=== PATIENT | male | born 1970 | race Two or more races ===

== ENCOUNTER 2019-04-25 14:37 | Inpatient (IN) | payer OTHER ==
[~2019-04-25] VITALS: Ht 175.3 cm; Wt 75.0 kg
[2019-04-25] MEDS ORDERED: traZODone 25MG PER 1/2 TABLET PO PRN (15:30)
[2019-04-25] MEDS ORDERED: DEXTROSE 50% 50 ML SYRINGE IV PRN (15:30)
[2019-04-25] MEDS ORDERED: GLUCAGON FOR INJ 1 MG VIAL (J1610) SC PRN (15:30)
[2019-04-25] MEDS ORDERED: GLUCOSE 4 GM CHEW TABLET PO PRN (15:30)
[2019-04-25 15:48] VITALS: BP 129/86
[2019-04-25] MEDS ORDERED: LANTINJ4 SC (16:21)
[2019-04-25] MEDS ORDERED: PANT40TA3 PO (16:21)
[2019-04-25] MEDS ORDERED: ASPI325T57 PO (16:31)
[2019-04-25] MEDS ORDERED: INSUHUMDS SC (16:31)
[2019-04-25] MEDS ORDERED: ATOR80TA59 PO (16:31)
[2019-04-25] MEDS ORDERED: METO1TAB87 PO (16:31)
[2019-04-25] MEDS ORDERED: QUET1TAB7 PO (16:32)
[2019-04-25] MEDS ORDERED: COMMENTS (18:02)
[2019-04-25] MEDS: HumaLOG INSULIN (NovoLOG) PER UNIT SC SCH ×2 (18:03→21:00)
[2019-04-25] MEDS ORDERED: LEVEMIR (INSULIN DETEMIR) 1 UNITS/0.01ML SC SCH (21:00)
[2019-04-25] MEDS: SENNA 8.6 MG TAB (SENOKOT) PO SCH (21:00)
[2019-04-25] MEDS: HEPARIN SOD (PORCINE) 5000 UNITS/ML VIAL SC SCH (21:38)
[2019-04-25] MEDS: traZODone 25MG PER 1/2 TABLET PO SCH (21:38)
[2019-04-25] MEDS: METOPROLOL TART 12.5 MG PER 1/2 TAB PO SCH (21:39)
[2019-04-25] MEDS: DOCUSATE SODIUM 100 MG CAP PO SCH (21:39)
[2019-04-25] MEDS: ATORVASTATIN 20 MG TAB PO SCH (21:39)
[2019-04-25 22:00] VITALS: BP 114/72
[2019-04-26 06:00] VITALS: BP 154/81
[2019-04-26] MEDS: ASPIRIN 325 MG TAB PO SCH (08:09)
[2019-04-26] MEDS: HumaLOG INSULIN (NovoLOG) PER UNIT SC SCH ×4 (08:09→21:00)
[2019-04-26] MEDS: METOPROLOL TART 12.5 MG PER 1/2 TAB PO SCH ×2 (08:10→21:05)
[2019-04-26] MEDS: DOCUSATE SODIUM 100 MG CAP PO SCH ×2 (08:10→21:04)
[2019-04-26] MEDS: HEPARIN SOD (PORCINE) 5000 UNITS/ML VIAL SC SCH ×2 (08:10→21:06)
[2019-04-26] MEDS: PANTOPRAZOLE 40MG TAB (PROTONIX) PO SCH (08:10)
[2019-04-26 08:11] LABS: BASO # 0.1 10^3/uL (0.0-0.2); BASO % 0.7 % (0.0-1.0); EOS # 0.2 10^3/uL (0.0-0.5); LYMPH # 2.2 10^3/uL (1.5-5.0); LYMPH % 21.4 % (24.0-44.0); MEAN CORPUSCULAR HEMOGLOBIN 29.2 pg (27.0-33.0); MEAN CORPUSCULAR HGB CONC 32.6 g/dl (32.0-36.5); MEAN CORPUSCULAR VOLUME 89.8 fl (80.0-96.0); MONO # 0.7 10^3/uL (0.0-0.8); MONO % 6.8 % (0.0-5.0); NEUTROPHILS % 68.5 % (36.0-66.0); PLATELET COUNT, AUTOMATED 486 10^3/uL (150-450); RED BLOOD COUNT 4.79 10^6/uL (4.30-6.10); WHITE BLOOD COUNT 10.2 10^3/uL (4.0-10.0)
[2019-04-26 08:41] LABS: ALBUMIN 3.1 GM/DL (3.2-5.2); ALT/SGPT 40 U/L (12-78); BILIRUBIN,TOTAL 0.3 MG/DL (0.2-1.0); BLOOD UREA NITROGEN 11 MG/DL (7-18); CALCIUM LEVEL 9.4 MG/DL (8.5-10.1); CARBON DIOXIDE LEVEL 29 MEQ/L (21-32); CHLORIDE LEVEL 102 MEQ/L (98-107); CREATININE FOR GFR 0.88 MG/DL (0.70-1.30); GLOMERULAR FILTRATION RATE > 60.0 (>56); GLUCOSE, FASTING 294 MG/DL (70-100); SODIUM LEVEL 138 MEQ/L (136-145); TOTAL PROTEIN 7.6 GM/DL (6.4-8.2)
[2019-04-26 14:00] VITALS: BP 98/59
--- NOTE | 2019-04-26 15:06 | HPEPDOC ---
Manager Landscape Note DATE OF ADMISSION: 04-25-19 SOURCE OF ADMISSION INFORMATION: [facility] records and patient CHIEF COMPLAINT: stroke with TBI HISTORY OF PRESENT ILLNESS: 48M pmh DM2, HLD, HTN, smoking, CAD who presented to [facility] on 04-11-19 with chest pain, found to have STEMI and post-cardiac catheterization developed lethargy and altered mental status. CT showed a right cerebellar infarct with concern for LVO and patient was transported to [facility] where CTA showed, right cerebellar infarctno occlusion or significant stenosis in the arteries of the neck. He was not given TPA nor was a mechanical thrombectomy performed. He was evaluated by speech and found not to have swallowing impairments. He developed worsening neurological decline with CTH showing, stable right PICA distribution infarct. Over time the associated mass effect has progressed increase in the size of the ventricular system. He had a EVD placed on 04-14-19 and underwent a right suboccipital craniectomy on 04-15-[address] Roman with resection of the necrotic cerebellum. He developed a post-op fever and was started on IV Zosyn and Vancomycin empirically, extubated and had EVD removed on 04-17-19. ECHO showed calculated left ventricular ejection fraction 31.8%...grade 1 diastolic dysfunction He was evaluated by therapy and noted to have deficits in mobility and impairment and deemed medically appropriate for discharge to ARU on 04-25-19. REVIEW OF SYSTEMS: The following is a completed review of systems and has been reviewed. Review of systems otherwise unremarkable. PAIN: Patient self reports no pain EYES: No recent vision changes EARS, NOSE, & THROAT: No throat pain, or dysphagia, or rhinorrhea CARDIOVASCULAR: Denies chest pain or palpitations PULMONARY: Denies shortness of breath GASTROINTESTINAL: Denies constipation/diarrhea GENITOURINARY: denies dysuria MUSCULOSKELETAL: no joint restrictions or localized weakness NEUROLOGICAL:s/p craniotomy and CVA HEMATOLOGICAL: denies easy bruising SKIN: cranial sutures PSYCHIATRIC: Unremarkable All other review of systems found to be negative. PAST MEDICAL HISTORY: as per HPI PAST SURGICAL HISTORY: as per HPI ALLERGIES: Please see below. MEDICATIONS: Please see below. SOCIAL HISTORY: +smoker, no etoh or illicit drugs DIET: mechanical soft, thins PHYSICAL EXAMINATION: VITAL SIGNS: Please see below. GENERAL: Pleasant and cooperative. No acute distress. HEENT: PERRL. Extraocular movements intact. Clear conjunctiva CARDIOVASCULAR: Regular rate and rhythm. No murmurs, rubs, or gallops LUNGS: Clear to auscultation bilaterally. No wheezes. No rhonchi ABDOMEN: Soft, nontender, nondistended. Positive bowel sounds. Normal active bowel sounds NEUROLOGICAL: Alert and oriented times three. Cranial nerves II through XII grossly intact. Sensation grossly intact in all 4 limbs EXTREMITIES: 5\5 strength bilateral upper extremities. 5\5 strength right lower extremity. 5/5 strength in left lower extremity. SKIN: right frontal and suboccipital mayur LABORATORY DATA: Please see below. IMAGING:Imaging documentation personally reviewed by record FUNCTIONAL STATUS: Premorbid: Independent with all activities of daily life as well as mobility On Admission: Minimum assistance for bathing, upper body dressing, bed chair and wheelchair transfers, toilet transfers, ambulation. GOALS: Independent with all activities of daily life as well as mobility, fall recovery, high level balance training without AD ASSESSMENT:48-year-old M with past medical history of CAD, HTN, DM who presents status post STEMI, stroke with hydrocephalus s/p craniectomy PLAN: 1. 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 Neuro: s/p right cerebellar infarct complicated by hydrocephalus with mass effect requiring craniectomy decompression on 04-15-19 -f/u with neurosurgeon upon discharge -mayur/sutures to be removed 05-05-19 -secondary stroke prevention- statin, ASa, BP and diabetic control 3. Cardiac: systolic CHF EF 30% s/p catheterization 04-11-19, and grade 1 diastolic CHF- c/u statin, metoprolol, and ASA 325mg- medicine consulted to assist in management -f/u with cardiology outpatient 4. resp: encourage incentive spirometry 5. : monitor PVRs 6. DVT ppx: heparin and TEDs 7. GI ppx: protonix 8. Endo: DM poorly controlled, s/u Insulin coverage and adjust prn 8. Dispo: TBD POST ADMISSION PHYSICIAN EVALUATION: Medical and functional status: Description of medical status, medical assessment: As above. Rehabilitation diagnosis and current and prior cold morbid medical conditions as above. Risk of complications and plans to mitigate them as above. Description of functional status current status is as above. Prior status as above. Status compared to preadmission: There are no clinically significant differences between the patient's current status and the information described on the preadmission screening document. Treatment plan anticipated: Treatment plan is as described above. Required disciplines including physical therapy, occupational therapy, others as noted above. Intensity of services: 3 hours a day, 6 days a week. Special considerations: There are no specific special or safety considerations that would likely preclude immediate implementation of an intensive rehabilitation program or subsequently influence the plan of care. ATTESTATION: Considering all the information above, it is my best judgment that this patient requires intensive rehabilitation therapy as described above and an inpatient hospital environment due to the complexity of nursing, medical, and rehabilitation needs required by the patient. Furthermore, this patient can reasonably be expected to participate in an benefit from an inpatient rehabilitation stay with an interdisciplinary team approach to the delivery of rehabilitation care under the direction and supervision of rehabilitation physician. PROGNOSIS: Excellent. ESTIMATED LENGTH OF STAY:8-10 days. PROJECTED DISCHARGE DESTINATION: Home with family support and any durable medical equipment required to increase functional safety and mobility. TIME SPENT COUNSELING AND COORDINATING INITIAL CARE: Greater than 70 minutes. Vital Signs Vital Sign - Last 24 Hours 04/25/19 04/25/19 04/25/19 04/26/19 15:48 21:39 22:00 06:00 Temp 96.3 97.3 96.8 Pulse 76 84 73 86 Resp 17 18 18 B/P (MAP) 129/86 (100) 114/72 114/72 (86) 154/81 (105) Pulse Ox 100 100 O2 Delivery Room Air Room Air Room Air 04/26/19 04/26/19 08:10 14:00 Temp 98.2 Pulse 86 67 Resp 18 B/P (MAP) 154/81 98/59 (72) Pulse Ox 99 O2 Delivery Room Air Laboratory Data CBC/BMP Laboratory Tests 04/26/19 07:54 Labs 24H Laboratory Tests 2 04/25/19 16:05: Bedside Glucose (Misc Panel) 147H 04/25/19 20:53: Bedside Glucose (Misc Panel) 218H 04/26/19 06:49: Bedside Glucose (Misc Panel) 296H 04/26/19 07:54: Immature Granulocyte % (Auto) 0.6, Neutrophils (%) (Auto) 68.5H, Lymphocytes (%) (Auto) 21.4L, Monocytes (%) (Auto) 6.8H, Eosinophils (%) (Auto) 2.0, Basophils (%) (Auto) 0.7, Neutrophils # (Auto) 7.0, Lymphocytes # (Auto) 2.2, Monocytes # (Auto) 0.7, Eosinophils # (Auto) 0.2, Basophils # (Auto) 0.1, Nucleated Red Blood Cells % (auto) 0.0, Anion Gap 7L, Glomerular Filtration Rate > 60.0, Calcium Level 9.4, Total Bilirubin 0.3, Aspartate Amino Transf (AST/SGOT) 21, Alanine Aminotransferase (ALT/SGPT) 40, Alkaline Phosphatase 116, Total Protein 7.6, Albumin 3.1L, Albumin/Globulin Ratio 0.69L 04/26/19 12:06: Bedside Glucose (Misc Panel) 360H FSBS Laboratory Tests Test 04/25/19 16:05 04/25/19 20:53 04/26/19 06:49 04/26/19 12:06 Range/Units Bedside Glucose (Misc Panel) 147 218 296 360 70-105 MG/DL Home Medications Scheduled Aspirin (Aspirin) 325 Mg Tablet, 325 MG PO DAILY, (Reported) Atorvastatin Calcium (Atorvastatin Calcium) 80 Mg Tablet, 80 MG PO QPM, (Reported) Insulin Glargine,Hum.rec.anlog (Lantus Solostar) 100 Unit/1 Ml Insuln.pen, 30 UNITS SC QHS, (Reported) Insulin Human Lispro (Humalog) 100 Unit/1 Ml Vial, 1 DOSE SC WM, (Reported) SLIDING SCALE Metoprolol Tartrate (Metoprolol Tartrate) 25 Mg Tablet, 12.5 MG PO BID, (Reported) Pantoprazole Sodium (Pantoprazole Sodium) 40 Mg Tablet.dr, 40 MG PO DAILY, (Reported) Scheduled PRN Quetiapine Fumarate (Quetiapine Fumarate) 25 Mg Tablet, 25 MG PO Q8H PRN for AGITATION, (Reported) Allergies Coded Allergies: No Known Allergies (Unverified , 04/25/19) A-FIB/CHADSVASC A-FIB History Current/History of A-Fib/PAF?: No SAEED CASTANEDA MD Apr 26, 2019 15:06
--- NOTE | 2019-04-26 15:26 | IPNPDOC ---
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 REVIEW OF SYSTEMS: The following is a completed review of systems and has been reviewed. Review of systems otherwise unremarkable. PAIN: Patient self reports no pain EYES: No recent vision changes EARS, NOSE, & THROAT: No throat pain, or dysphagia, or rhinorrhea CARDIOVASCULAR: Denies chest pain or palpitations PULMONARY: Denies shortness of breath GASTROINTESTINAL: Denies constipation/diarrhea GENITOURINARY: denies dysuria MUSCULOSKELETAL: no joint restrictions or localized weakness NEUROLOGICAL:s/p craniotomy and CVA HEMATOLOGICAL: denies easy bruising SKIN: cranial sutures PSYCHIATRIC: Unremarkable All other review of systems found to be negative. PHYSICAL EXAMINATION: VITAL SIGNS: Please see below. GENERAL: Pleasant and cooperative. No acute distress. HEENT: PERRL. Extraocular movements intact. Clear conjunctiva CARDIOVASCULAR: Regular rate and rhythm. No murmurs, rubs, or gallops LUNGS: Clear to auscultation bilaterally. No wheezes. No rhonchi ABDOMEN: Soft, nontender, nondistended. Positive bowel sounds. Normal active bowel sounds NEUROLOGICAL: Alert and oriented times three. Cranial nerves II through XII grossly intact. Sensation grossly intact in all 4 limbs EXTREMITIES: 5\5 strength bilateral upper extremities. 5\5 strength right lower extremity. 5/5 strength in left lower extremity. SKIN: right frontal and suboccipital mayur ASSESSMENT:48-year-old M with past medical history of CAD, HTN, DM who presents status post STEMI, stroke with hydrocephalus s/p craniectomy PLAN: 1. Rehab- PT strengthen/stretch/maintain ROM bilat LE, fall recovery, high level gait training OT- strengthen/stretch/maintain ROM bilat UE, advance ADLs CIRCUS ROUSTABOUT- evaluated and treat for cognitive dysfunction/dysphagia 2. Neuro: s/p right cerebellar infarct complicated by hydrocephalus with mass effect requiring craniectomy decompression on 04-15-19 -f/u with neurosurgeon upon discharge -mayur/sutures to be removed 05-05-19 -secondary stroke prevention- statin, ASa, BP and diabetic control 3. Cardiac: systolic CHF EF 30% s/p catheterization 04-11-19, and grade 1 diastolic CHF- c/u statin, metoprolol, and ASA 325mg- medicine consulted to assist in management -f/u with cardiology outpatient 4. resp: encourage incentive spirometry 5. : monitor PVRs 6. DVT ppx: heparin and TEDs 7. GI ppx: protonix 8. Endo: DM poorly controlled, c/u Insulin coverage and adjust prn, will add metformin 8. Dispo: TBD Allergies Coded Allergies: No Known Allergies (Unverified , 04/25/19) Vital Signs Vital Signs Date Time Temp Pulse Resp B/P (MAP) Pulse Ox O2 Delivery O2 Flow Rate FiO2 04/26/19 14:00 98.2 67 18 98/59 (72) 99 Room Air Laboratory Data CBC/BMP Laboratory Tests 04/26/19 07:54 Labs 24H Laboratory Tests 2 04/25/19 16:05: Bedside Glucose (Misc Panel) 147H 04/25/19 20:53: Bedside Glucose (Misc Panel) 218H 04/26/19 06:49: Bedside Glucose (Misc Panel) 296H 04/26/19 07:54: Immature Granulocyte % (Auto) 0.6, Neutrophils (%) (Auto) 68.5H, Lymphocytes (%) (Auto) 21.4L, Monocytes (%) (Auto) 6.8H, Eosinophils (%) (Auto) 2.0, Basophils (%) (Auto) 0.7, Neutrophils # (Auto) 7.0, Lymphocytes # (Auto) 2.2, Monocytes # (Auto) 0.7, Eosinophils # (Auto) 0.2, Basophils # (Auto) 0.1, Nucleated Red Blood Cells % (auto) 0.0, Anion Gap 7L, Glomerular Filtration Rate > 60.0, Calcium Level 9.4, Total Bilirubin 0.3, Aspartate Amino Transf (AST/SGOT) 21, Alanine Aminotransferase (ALT/SGPT) 40, Alkaline Phosphatase 116, Total Protein 7.6, Albumin 3.1L, Albumin/Globulin Ratio 0.69L 04/26/19 12:06: Bedside Glucose (Misc Panel) 360H Current Medications Current Medications Current Medications Medications (Trade) Dose Ordered Sig/Safia Route PRN Reason Start Time Stop Time Status Last Admin Dose Admin Acetaminophen (Tylenol Tab) 650 mg Q4HP PRN PO MILD PAIN (PS 1-4) 04/25/19 15:30 Aspirin (Aspirin) 325 mg DAILY PO 04/26/19 09:00 04/26/19 08:09 Atorvastatin Calcium (Lipitor) 80 mg QHS PO 04/25/19 21:00 04/25/19 21:39 Dextrose (Dextrose 50%) 25 ml ASDIRECTED PRN IV SEE LABEL COMMENTS 04/25/19 15:30 Docusate Sodium (Colace) 100 mg BID PO 04/25/19 21:00 04/25/19 21:39 Glucagon (Glucagon) 1 mg ASDIRECTED PRN SC SEE LABEL COMMENTS 04/25/19 15:30 Glucose (Glucose) 16 GM ASDIRECTED PRN PO SEE LABEL COMMENTS 04/25/19 15:30 Heparin Sodium (Porcine) (Heparin) 5,000 units Q12H SC 04/25/19 21:00 04/26/19 08:10 Home Med (Med Rec Complete!) ASDIRECTED XX 04/25/19 18:15 04/25/19 18:41 DC Insulin Detemir (Levemir Insulin) 20 units QHS SC 04/25/19 21:00 04/26/19 14:48 DC 04/25/19 21:38 Insulin Detemir (Levemir Insulin) 30 units QHS SC 04/26/19 21:00 Insulin Human Lispro (HumaLOG INSULIN) SEE PROTOCOL TABLE AC SC 04/25/19 17:30 04/26/19 13:27 Insulin Human Lispro (HumaLOG INSULIN) SEE PROTOCOL TABLE QHS SC 04/25/19 21:00 Metoprolol Tartrate (Lopressor) 12.5 mg BID PO 04/25/19 21:00 04/26/19 08:10 Pantoprazole Sodium (Protonix) 40 mg DAILY PO 04/26/19 09:00 04/26/19 08:10 Senna (Senokot) 1 tab QHS PO 04/25/19 21:00 Trazodone HCl (Desyrel) 25 mg Q6HP PRN PO AGITATION 04/25/19 15:30 Trazodone HCl (Desyrel) 25 mg QHS PO 04/25/19 21:00 04/25/19 21:38 SAEED CASTANEDA MD Apr 26, 2019 15:26
--- NOTE | 2019-04-26 17:18 | HPEPDOC ---
General Date of Admission Apr 25, 2019 at 15:33 Date of Service: Apr 25, 2019 Chief Complaint The patient is a 48-year-old male admitted with a reason for visit of Right Cerebellar Cva. Source: Patient, RN/MD, Old records History of Present Illness Consultation report Consultation requested by Dr Richard. Consultation for management of medical comorbidities HPI: 48 year old male with no PMH till this episode of prolonged hospitalization at [facility] when he was found to have CAD s/p STEMI and s/p stent, diabetes, hypertension, ischemic cardiomyopathy, hyperlipidemia was transferred from [facility] fro acute rehab. The patient who has not seen any physician for 7 years originally presented to [facility] on night of 04/10 for chest discomfort for 2 days started on 04/07, dizziness, visual changes, found to have ST elevation AMI was transferred to [facility] and underwent cardiac cath and stents and was found to have extensive CAD and was determined that he needed CABG. On 04/11 post cardiac cath he developed neurological changes and found to right cerebellar infarct and was transferred to [facility] where CTA showed right cerebellar infarct without any significant occlusion of neck arteries. He was not given TPA nor was a mechanical thrombectomy performed. He developed worsening neurological decline with CTH showing, stable right PICA distribution infarct. Over time the associated mass effect has progressedincrease in the size of the ventricular system. He had a EVD placed on 04-14-19 and underwent a right suboccipital craniectomy on 04-15-19 with resection of the necrotic cerebellum and decompression of brain stem was successfully extubated and EVD removed on 04/17. . ECHO showed calculated left ventricular ejection fraction 31.8%...grade 1 diastolic dysfunction He was then transferred to [facility] for acute rehab. On my interview he denied any complaints. Denied any headache, or swallowing difficulties, denied any weakness of any extremities. He did say that he has missed 1 week of the hospitalization and does not remember being on a ventilator. Home Medications Scheduled Aspirin (Aspirin) 325 Mg Tablet, 325 MG PO DAILY, (Reported) Atorvastatin Calcium (Atorvastatin Calcium) 80 Mg Tablet, 80 MG PO QPM, (Reported) Insulin Glargine,Hum.rec.anlog (Lantus Solostar) 100 Unit/1 Ml Insuln.pen, 30 UNITS SC QHS, (Reported) Insulin Human Lispro (Humalog) 100 Unit/1 Ml Vial, 1 DOSE SC WM, (Reported) SLIDING SCALE Metoprolol Tartrate (Metoprolol Tartrate) 25 Mg Tablet, 12.5 MG PO BID, (Reported) Pantoprazole Sodium (Pantoprazole Sodium) 40 Mg Tablet.dr, 40 MG PO DAILY, (Reported) Scheduled PRN Quetiapine Fumarate (Quetiapine Fumarate) 25 Mg Tablet, 25 MG PO Q8H PRN for AGITATION, (Reported) Miscellaneous Medications [Comments] , (Reported) PT STATES THAT HE WAS NOT TAKING ANY MEDICATION BEFORE BEING ADMITTED TO [facility]. THE MEDS LISTED ARE WHAT THE DOCTOR HAD PRESCRIBED AT TIME OF DISCHARGE. Allergies Coded Allergies: No Known Allergies (Unverified , 04/25/19) Past Medical History Medical History STEMI 04/11/19 Extensive CAD s/p recent stent Diabetes newly diagnosed Hypertension newly diagnosed CVA Surgical History Cardiac stent. EVD placement Right Sub Occipital craniectomy and removal of cerebellar necrotic tissue Family History mother when he was 6, father when he was 1 so does not know any of their medical history does not have any siblings. Has 2 children who are healthy maternal uncle with heart disease Social History * Smoker: current smoker Alcohol: occationally Drugs: denies A-FIB/CHADSVASC A-FIB History Current/History of A-Fib/PAF?: No Review of Systems Constitutional: Denies: Chills, Fever, Night Sweats Eyes: Denies: Pain, Vision change ENT: Denies: Head Aches, Ear Pain, Dysphagia Skin: Denies: Rash, Lesions, Breakdown Pulmonary: Denies: Dyspnea, Cough Cardiovascular: Denies: Chest Pain, Palpitations, Orthopnea, Paroxysmal Noc. Dyspnea, Lt Headedness Gastrointestinal: Denies: Nausea, Vomiting, Abdominal Pain, Diarrhea Hematologic: Denies: Bruising, Bleeding Excessively Musculoskeletal: Denies: Neck Pain, Back Pain, Joint Pain, Muscle Pain, Spasms Neurological: Denies: Weakness, Numbness, Change in speech, Confusion Physical Examination General Exam: Positive: Alert, Cooperative, No Acute Distress, Other (Multiple mayur on the right lower occipital region, sutures on dariana right parietal region) Eye Exam: Positive: PERRLA, Conjunctiva & lids normal, EOMI; Negative: Sclera icteric ENT Exam: Positive: Mucous membr. moist/pink, Pharynx Normal Neck Exam: Positive: Supple; Negative: JVD, thyromegaly Chest Exam: Positive: Clear to auscultation, Normal air movement Heart Exam: Positive: Rate Normal, Regular Rhythm, Normal S1, Normal S2; Negative: Murmurs, Rubs Abdomen Exam: Positive: Normal bowel sounds, Soft; Negative: Tenderness, Hepatospenomegaly Extremity Exam: Positive: Normal pulses; Negative: Clubbing, Cyanosis, Edema Skin Exam: Positive: Nl turgor and temperature; Negative: Breakdown, Lesion Neuro Exam: Positive: Normal Speech, Strength at 5/5 X4 ext, Normal Tone Vital Signs Vital Signs Date Time Temp Pulse Resp B/P (MAP) Pulse Ox O2 Delivery O2 Flow Rate FiO2 04/25/19 15:48 96.3 76 17 129/86 (100) 100 Room Air Laboratory Data Labs 24H Laboratory Tests 2 04/25/19 16:05: Bedside Glucose (Misc Panel) 147H Assessment/Plan 48 year old male with no PMH till this episode of prolonged hospitalization at [facility] when he was found to have CAD s/p STEMI and s/p stent, diabetes, hypertension, ischemic cardiomyopathy, hyperlipidemia developed acute right cerebellar ischemic CVA in right PICA distribution post cardiac cath with subsequent increase in intracerebral pressure and mass effect requiring EVD placement and right suboccipital craniectomy was transferred here for acute rehab. Acute Cerebellar stroke continue ASA, statin PT OT as per ARU Extensive CAD s/p STEMI and stent placement with ischemic cardiomyopathy with EF of 30% continue ASA, statin, metoprolol No signs of fluid overload at present. monitor intake and output. Diabetes not controlled continue levemir, lispro metformin FS monitoring AC and HS. carb consistent diet Hypertension well controlled continue metoprolol GI prophylaxis in place. Plan / VTE VTE Prophylaxis Ordered?: Yes NOA KRUGER MD Apr 25, 2019 18:39
[2019-04-26] MEDS: metFORMIN (GLUCOPHAGE) 500 MG TAB PO SCH (17:41)
[2019-04-26 19:40] VITALS: BP 120/76
[2019-04-26] MEDS ORDERED: LEVEMIR (INSULIN DETEMIR) 1 UNITS/0.01ML SC SCH ×2 (21:00)
[2019-04-26] MEDS: traZODone 25MG PER 1/2 TABLET PO SCH (21:04)
[2019-04-26] MEDS: SENNA 8.6 MG TAB (SENOKOT) PO SCH (21:04)
[2019-04-26] MEDS: ATORVASTATIN 20 MG TAB PO SCH (21:06)
[2019-04-27 06:00] VITALS: BP 92/58
[2019-04-27] MEDS: PANTOPRAZOLE 40MG TAB (PROTONIX) PO SCH (08:19)
[2019-04-27] MEDS: ASPIRIN 325 MG TAB PO SCH (08:19)
[2019-04-27] MEDS: metFORMIN (GLUCOPHAGE) 500 MG TAB PO SCH ×2 (08:19→17:16)
[2019-04-27] MEDS: HEPARIN SOD (PORCINE) 5000 UNITS/ML VIAL SC SCH ×2 (08:19→20:56)
[2019-04-27] MEDS: HumaLOG INSULIN (NovoLOG) PER UNIT SC SCH ×4 (08:19→20:53)
[2019-04-27] MEDS: DOCUSATE SODIUM 100 MG CAP PO SCH ×2 (08:20→20:51)
[2019-04-27] MEDS: METOPROLOL TART 12.5 MG PER 1/2 TAB PO SCH ×2 (08:24→20:51)
[2019-04-27 08:54] LABS: BASO # 0.1 10^3/uL (0.0-0.2); BASO % 0.5 % (0.0-1.0); EOS # 0.2 10^3/uL (0.0-0.5); EOS % 1.3 % (0.0-3.0); HEMATOCRIT 39.5 % (42.0-52.0); HEMOGLOBIN 12.6 g/dl (13.5-17.5); LYMPH # 2.2 10^3/uL (1.5-5.0); MEAN CORPUSCULAR HEMOGLOBIN 29.5 pg (27.0-33.0); MEAN CORPUSCULAR HGB CONC 31.9 g/dl (32.0-36.5); MEAN CORPUSCULAR VOLUME 92.5 fl (80.0-96.0); MONO # 0.8 10^3/uL (0.0-0.8); MONO % 6.2 % (0.0-5.0); NEUTROPHILS # 9.7 10^3/uL (1.5-8.5); NEUTROPHILS % 74.5 % (36.0-66.0); PLATELET COUNT, AUTOMATED 405 10^3/uL (150-450); RED BLOOD COUNT 4.27 10^6/uL (4.30-6.10)
[2019-04-27 09:14] LABS: BLOOD UREA NITROGEN 12 MG/DL (7-18); CALCIUM LEVEL 9.4 MG/DL (8.5-10.1); CARBON DIOXIDE LEVEL 31 MEQ/L (21-32); CHLORIDE LEVEL 105 MEQ/L (98-107); CREATININE FOR GFR 0.86 MG/DL (0.70-1.30); GLOMERULAR FILTRATION RATE > 60.0 (>56); GLUCOSE, FASTING 228 MG/DL (70-100); POTASSIUM SERUM 4.2 MEQ/L (3.5-5.1); SODIUM LEVEL 140 MEQ/L (136-145)
[2019-04-27 10:04] LABS: C REACTIVE PROTEIN QUANTITATIV 0.87 MG/DL (0.00-0.30)
[2019-04-27 10:04] LABS: C REACTIVE PROTEIN QUANTITATIV 0.96 MG/DL (0.00-0.30)
--- NOTE | 2019-04-27 12:12 | IPNPDOC ---
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 He agrees to stay until Wednesday to improve his diabetes control and work on more ADL management. REVIEW OF SYSTEMS: The following is a completed review of systems and has been reviewed. Review of systems otherwise unremarkable. PAIN: Patient self reports no pain EYES: No recent vision changes EARS, NOSE, & THROAT: No throat pain, or dysphagia, or rhinorrhea CARDIOVASCULAR: Denies chest pain or palpitations PULMONARY: Denies shortness of breath GASTROINTESTINAL: Denies constipation/diarrhea GENITOURINARY: denies dysuria MUSCULOSKELETAL: no joint restrictions or localized weakness NEUROLOGICAL:s/p craniotomy and CVA HEMATOLOGICAL: denies easy bruising SKIN: cranial sutures PSYCHIATRIC: Unremarkable All other review of systems found to be negative. PHYSICAL EXAMINATION: VITAL SIGNS: Please see below. GENERAL: Pleasant and cooperative. No acute distress. HEENT: PERRL. Extraocular movements intact. Clear conjunctiva CARDIOVASCULAR: Regular rate and rhythm. No murmurs, rubs, or gallops LUNGS: Clear to auscultation bilaterally. No wheezes. No rhonchi ABDOMEN: Soft, nontender, nondistended. Positive bowel sounds. Normal active bowel sounds NEUROLOGICAL: Alert and oriented times three. Cranial nerves II through XII grossly intact. Sensation grossly intact in all 4 limbs EXTREMITIES: 5\5 strength bilateral upper extremities. 5\5 strength right lower extremity. 5/5 strength in left lower extremity. SKIN: right frontal and suboccipital mayur, mild erythema terrell-incision without induration or TTP ASSESSMENT:48-year-old M with past medical history of CAD, HTN, DM who presents status post STEMI, stroke with hydrocephalus s/p craniectomy PLAN: 1. 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 Neuro: s/p right cerebellar infarct complicated by hydrocephalus with mass effect requiring craniectomy decompression on 04-15-19 -f/u with neurosurgeon upon discharge -mayur/sutures to be removed 05-05-19 -secondary stroke prevention- statin, ASa, BP and diabetic control 3. Cardiac: systolic CHF EF 30% s/p catheterization 04-11-19, and grade 1 diastolic CHF- c/u statin, metoprolol, and ASA 325mg- medicine consulted to assist in management -f/u with cardiology outpatient 4. resp: encourage incentive spirometry 5. : monitor PVRs 6. DVT ppx: heparin and TEDs 7. GI ppx: protonix -FOBT ordered today for drop in Hgb 8. Leukocytosis: increased from 10-->13, however CRP trending down, patient afebrile, most likely post-op inflammation, incision site with mild erythema, however not painful to touch and not concerned for cellulitis- will c/u to monitor 8. Endo: DM poorly controlled, c/u Insulin coverage and adjust prn, c/u metformin, on consistent carb diet 8. Dispo: 05-01-19 to home Allergies Coded Allergies: No Known Allergies (Unverified , 04/25/19) Vital Signs Vital Signs Date Time Temp Pulse Resp B/P (MAP) Pulse Ox O2 Delivery O2 Flow Rate FiO2 04/27/19 08:24 88 118/82 04/27/19 06:00 98.1 17 97 Room Air Laboratory Data CBC/BMP Laboratory Tests 04/27/19 08:37 Labs 24H Laboratory Tests 2 04/26/19 17:35: Bedside Glucose (Misc Panel) 235H 04/26/19 20:00: Bedside Glucose (Misc Panel) 229H 04/27/19 08:37: Immature Granulocyte % (Auto) 0.5, Neutrophils (%) (Auto) 74.5H, Lymphocytes (%) (Auto) 17.0L, Monocytes (%) (Auto) 6.2H, Eosinophils (%) (Auto) 1.3, Basophils (%) (Auto) 0.5, Neutrophils # (Auto) 9.7H, Lymphocytes # (Auto) 2.2, Monocytes # (Auto) 0.8, Eosinophils # (Auto) 0.2, Basophils # (Auto) 0.1, Nucleated Red Blood Cells % (auto) 0.0, Anion Gap 4L, Glomerular Filtration Rate > 60.0, Calc ium Level 9.4, C-Reactive Protein, Quantitative 0.87H 04/27/19 12:03: Bedside Glucose (Misc Panel) 283H Current Medications Current Medications Current Medications Medications (Trade) Dose Ordered Sig/Safia Route PRN Reason Start Time Stop Time Status Last Admin Dose Admin Acetaminophen (Tylenol Tab) 650 mg Q4HP PRN PO MILD PAIN (PS 1-4) 04/25/19 15:30 Aspirin (Aspirin) 325 mg DAILY PO 04/26/19 09:00 04/27/19 08:19 Atorvastatin Calcium (Lipitor) 80 mg QHS PO 04/25/19 21:00 04/26/19 21:06 Dextrose (Dextrose 50%) 25 ml ASDIRECTED PRN IV SEE LABEL COMMENTS 04/25/19 15:30 Docusate Sodium (Colace) 100 mg BID PO 04/25/19 21:00 04/27/19 08:20 Glucagon (Glucagon) 1 mg ASDIRECTED PRN SC SEE LABEL COMMENTS 04/25/19 15:30 Glucose (Glucose) 16 GM ASDIRECTED PRN PO SEE LABEL COMMENTS 04/25/19 15:30 Heparin Sodium (Porcine) (Heparin) 5,000 units Q12H SC 04/25/19 21:00 04/27/19 08:19 Home Med (Med Rec Complete!) ASDIRECTED XX 04/25/19 18:15 04/25/19 18:41 DC Insulin Detemir (Levemir Insulin) 20 units QHS SC 04/25/19 21:00 04/26/19 14:48 DC 04/25/19 21:38 Insulin Detemir (Levemir Insulin) 20 units QHS SC 04/26/19 21:00 04/27/19 09:42 DC 04/26/19 21:07 Insulin Detemir (Levemir Insulin) 25 units QHS SC 04/27/19 21:00 Insulin Detemir (Levemir Insulin) 30 units QHS SC 04/26/19 21:00 04/26/19 15:25 DC Insulin Detemir (Levemir Insulin) 30 units QHS SC 04/27/19 21:00 04/27/19 09:44 DC Insulin Human Lispro (HumaLOG INSULIN) SEE PROTOCOL TABLE AC SC 04/25/19 17:30 04/27/19 08:19 Insulin Human Lispro (HumaLOG INSULIN) SEE PROTOCOL TABLE QHS SC 04/25/19 21:00 Metformin HCl (Glucophage) 500 mg BID@,18 PO 04/26/19 18:00 04/27/19 08:19 Metoprolol Tartrate (Lopressor) 12.5 mg BID PO 04/25/19 21:00 04/27/19 08:24 Pantoprazole Sodium (Protonix) 40 mg DAILY PO 04/26/19 09:00 04/27/19 08:19 Senna (Senokot) 1 tab QHS PO 04/25/19 21:00 04/26/19 21:04 Trazodone HCl (Desyrel) 25 mg Q6HP PRN PO AGITATION 04/25/19 15:30 Trazodone HCl (Desyrel) 25 mg QHS PO 04/25/19 21:00 04/26/19 21:04 SAEED CASTANEDA MD Apr 27, 2019 12:12
[2019-04-27 16:30] VITALS: BP 114/60
[2019-04-27 19:50] VITALS: BP 131/78
[2019-04-27] MEDS: SENNA 8.6 MG TAB (SENOKOT) PO SCH (20:51)
[2019-04-27] MEDS: traZODone 25MG PER 1/2 TABLET PO SCH (20:51)
[2019-04-27] MEDS: ATORVASTATIN 20 MG TAB PO SCH (20:52)
[2019-04-27] MEDS: LEVEMIR (INSULIN DETEMIR) 1 UNITS/0.01ML SC SCH (20:53)
[2019-04-27] MEDS ORDERED: LEVEMIR (INSULIN DETEMIR) 1 UNITS/0.01ML SC SCH (21:00)
[2019-04-28 05:54] VITALS: BP 121/67
[2019-04-28] MEDS: DOCUSATE SODIUM 100 MG CAP PO SCH ×2 (09:00→21:33)
[2019-04-28] MEDS: metFORMIN (GLUCOPHAGE) 500 MG TAB PO SCH (09:34)
[2019-04-28] MEDS: ASPIRIN 325 MG TAB PO SCH (09:34)
[2019-04-28] MEDS: PANTOPRAZOLE 40MG TAB (PROTONIX) PO SCH (09:34)
[2019-04-28] MEDS: HEPARIN SOD (PORCINE) 5000 UNITS/ML VIAL SC SCH ×2 (09:34→21:34)
[2019-04-28] MEDS: METOPROLOL TART 12.5 MG PER 1/2 TAB PO SCH ×2 (09:35→21:33)
[2019-04-28] MEDS: HumaLOG INSULIN (NovoLOG) PER UNIT SC SCH ×4 (09:35→21:00)
[2019-04-28 10:38] LABS: BASO # 0.1 10^3/uL (0.0-0.2); BASO % 0.7 % (0.0-1.0); EOS # 0.2 10^3/uL (0.0-0.5); HEMATOCRIT 40.8 % (42.0-52.0); HEMOGLOBIN 12.8 g/dl (13.5-17.5); LYMPH # 2.5 10^3/uL (1.5-5.0); LYMPH % 23.2 % (24.0-44.0); MEAN CORPUSCULAR HEMOGLOBIN 29.1 pg (27.0-33.0); MEAN CORPUSCULAR HGB CONC 31.4 g/dl (32.0-36.5); MEAN CORPUSCULAR VOLUME 92.7 fl (80.0-96.0); MONO # 0.6 10^3/uL (0.0-0.8); MONO % 5.6 % (0.0-5.0); NEUTROPHILS # 7.3 10^3/uL (1.5-8.5); NEUTROPHILS % 68.2 % (36.0-66.0); PLATELET COUNT, AUTOMATED 447 10^3/uL (150-450); WHITE BLOOD COUNT 10.7 10^3/uL (4.0-10.0)
--- NOTE | 2019-04-28 13:46 | IPNPDOC ---
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 He told staff he wanted to smoke a cigarette, he was counseled by me not to as it increased his risk of heart attack and stroke. He was offered a nicoderm patch, but refused. He was also told it was not permitted to smoke on hospital premise. REVIEW OF SYSTEMS: The following is a completed review of systems and has been reviewed. Review of systems otherwise unremarkable. PAIN: Patient self reports no pain EYES: No recent vision changes EARS, NOSE, & THROAT: No throat pain, or dysphagia, or rhinorrhea CARDIOVASCULAR: Denies chest pain or palpitations PULMONARY: Denies shortness of breath GASTROINTESTINAL: Denies constipation/diarrhea GENITOURINARY: denies dysuria MUSCULOSKELETAL: no joint restrictions or localized weakness NEUROLOGICAL:s/p craniotomy and CVA HEMATOLOGICAL: denies easy bruising SKIN: cranial sutures PSYCHIATRIC: Unremarkable All other review of systems found to be negative. PHYSICAL EXAMINATION: VITAL SIGNS: Please see below. GENERAL: Pleasant and cooperative. No acute distress. HEENT: PERRL. Extraocular movements intact. Clear conjunctiva CARDIOVASCULAR: Regular rate and rhythm. No murmurs, rubs, or gallops LUNGS: Clear to auscultation bilaterally. No wheezes. No rhonchi ABDOMEN: Soft, nontender, nondistended. Positive bowel sounds. Normal active bowel sounds NEUROLOGICAL: Alert and oriented times three. Cranial nerves II through XII grossly intact. Sensation grossly intact in all 4 limbs EXTREMITIES: 5\5 strength bilateral upper extremities. 5\5 strength right lower extremity. 5/5 strength in left lower extremity. SKIN: right frontal and suboccipital mayur, mild erythema terrell-incision without induration or TTP ASSESSMENT:48-year-old M with past medical history of CAD, HTN, DM who presents status post STEMI, stroke with hydrocephalus s/p craniectomy PLAN: 1. 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 Neuro: s/p right cerebellar infarct complicated by hydrocephalus with mass effect requiring craniectomy decompression on 04-15-19f/u with neurosurgeon upon discharge -mayur/sutures to be removed 05-05-19 -secondary stroke prevention- statin, ASa, BP and diabetic control 3. Cardiac: systolic CHF EF 30% s/p catheterization 04-11-19, and grade 1 diast olic CHF- c/u statin, metoprolol, and ASA 325mg- medicine consulted to assist in management -f/u with cardiology outpatient 4. resp: encourage incentive spirometry 5. : monitor PVRs 6. DVT ppx: heparin and TEDs 7. GI ppx: protonix -FOBT ordered today for drop in Hgb 8. Leukocytosis: improving, CRP trending down, patient afebrile 8. Endo: DM poorly controlled, c/u Insulin coverage and adjust prn, increase metformin to 1000mg BID, on consistent carb diet 8. Dispo: 05-01-19 to home Allergies Coded Allergies: No Known Allergies (Unverified , 04/25/19) Vital Signs Vital Signs Date Time Temp Pulse Resp B/P (MAP) Pulse Ox O2 Delivery O2 Flow Rate FiO2 04/28/19 09:35 102 122/78 04/28/19 05:54 98.6 18 94 Room Air Laboratory Data CBC/BMP Laboratory Tests 04/28/19 10:17 Labs 24H Laboratory Tests 2 04/27/19 16:23: Bedside Glucose (Misc Panel) 283H 04/27/19 19:59: Bedside Glucose (Misc Panel) 265H 04/28/19 05:11: Bedside Glucose (Misc Panel) 195H 04/28/19 10:17: Immature Granulocyte % (Auto) 0.3, Neutrophils (%) (Auto) 68.2H, Lymphocytes (%) (Auto) 23.2L, Monocytes (%) (Auto) 5.6H, Eosinophils (%) (Auto) 2.0, Basophils (%) (Auto) 0.7, Neutrophils # (Auto) 7.3, Lymphocytes # (Auto) 2.5, Monocytes # (Auto) 0.6, Eosinophils # (Auto) 0.2, Basophils # (Auto) 0.1, Nucleated Red Bl ood Cells % (auto) 0.0 04/28/19 11:42: Bedside Glucose (Misc Panel) 267H Current Medications Current Medications Current Medications Medications (Trade) Dose Ordered Sig/Safia Route PRN Reason Start Time Stop Time Status Last Admin Dose Admin Acetaminophen (Tylenol Tab) 650 mg Q4HP PRN PO MILD PAIN (PS 1-4) 04/25/19 15:30 Aspirin (Aspirin) 325 mg DAILY PO 04/26/19 09:00 04/28/19 09:34 Atorvastatin Calcium (Lipitor) 80 mg QHS PO 04/25/19 21:00 04/27/19 20:52 Dextrose (Dextrose 50%) 25 ml ASDIRECTED PRN IV SEE LABEL COMMENTS 04/25/19 15:30 Docusate Sodium (Colace) 100 mg BID PO 04/25/19 21:00 04/27/19 20:51 Glucagon (Glucagon) 1 mg ASDIRECTED PRN SC SEE LABEL COMMENTS 04/25/19 15:30 Glucose (Glucose) 16 GM ASDIRECTED PRN PO SEE LABEL COMMENTS 04/25/19 15:30 Heparin Sodium (Porcine) (Heparin) 5,000 units Q12H SC 04/25/19 21:00 04/28/19 09:34 Home Med (Med Rec Complete!) ASDIRECTED XX 04/25/19 18:15 04/25/19 18:41 DC Insulin Detemir (Levemir Insulin) 20 units QHS SC 04/25/19 21:00 04/26/19 14:48 DC 04/25/19 21:38 Insulin Detemir (Levemir Insulin) 20 units QHS SC 04/26/19 21:00 04/27/19 09:42 DC 04/26/19 21:07 Insulin Detemir (Levemir Insulin) 25 units QHS SC 04/27/19 21:00 04/27/19 20:53 Insulin Detemir (Levemir Insulin) 30 units QHS SC 04/26/19 21:00 04/26/19 15:25 DC Insulin Detemir (Levemir Insulin) 30 units QHS SC 04/27/19 21:00 04/27/19 09:44 DC Insulin Human Lispro (HumaLOG INSULIN) SEE PROTOCOL TABLE AC SC 04/25/19 17:30 04/28/19 12:14 Insulin Human Lispro (HumaLOG INSULIN) SEE PROTOCOL TABLE QHS SC 04/25/19 21:00 04/27/19 20:53 Metformin HCl (Glucophage) 500 mg BID@08,18 PO 04/26/19 18:00 04/28/19 10:00 DC 04/28/19 09:34 Metformin HCl (Glucophage) 1,000 mg BID@,18 PO 04/28/19 18:00 Metoprolol Tartrate (Lopressor) 12.5 mg BID PO 04/25/19 21:00 04/28/19 09:35 Pantoprazole Sodium (Protonix) 40 mg DAILY PO 04/26/19 09:00 04/28/19 09:34 Senna (Senokot) 1 tab QHS PO 04/25/19 21:00 04/27/19 20:51 Trazodone HCl (Desyrel) 25 mg Q6HP PRN PO AGITATION 04/25/19 15:30 Trazodone HCl (Desyrel) 25 mg QHS PO 04/25/19 21:00 04/27/19 20:51 SAEED CASTANEDA MD Apr 28, 2019 13:46
[2019-04-28 14:00] VITALS: BP 127/80
[2019-04-28] MEDS: ACETAMINOPHEN TAB 650MG DOSE (2X325MG) PO PRN (14:36)
[2019-04-28] MEDS ORDERED: GABAPENTIN 100 MG CAP PO ONE (15:00)
[2019-04-28] MEDS: metFORMIN (GLUCOPHAGE) 1000 MG TABLET PO SCH (18:02)
[2019-04-28 19:50] VITALS: BP 123/87
[2019-04-28] MEDS: GABAPENTIN 100 MG CAP PO SCH (21:33)
[2019-04-28] MEDS: traZODone 25MG PER 1/2 TABLET PO SCH (21:33)
[2019-04-28] MEDS: ATORVASTATIN 20 MG TAB PO SCH (21:33)
[2019-04-28] MEDS: SENNA 8.6 MG TAB (SENOKOT) PO SCH (21:33)
[2019-04-28] MEDS: LEVEMIR (INSULIN DETEMIR) 1 UNITS/0.01ML SC SCH (21:34)
[2019-04-29 06:00] VITALS: BP 135/74
[2019-04-29] MEDS: METOPROLOL TART 12.5 MG PER 1/2 TAB PO SCH ×2 (08:34→20:20)
[2019-04-29] MEDS: HumaLOG INSULIN (NovoLOG) PER UNIT SC SCH ×4 (08:34→20:46)
[2019-04-29] MEDS: DOCUSATE SODIUM 100 MG CAP PO SCH ×2 (08:34→20:21)
[2019-04-29] MEDS: PANTOPRAZOLE 40MG TAB (PROTONIX) PO SCH (08:34)
[2019-04-29] MEDS: GABAPENTIN 100 MG CAP PO SCH ×3 (08:35→20:20)
[2019-04-29] MEDS: metFORMIN (GLUCOPHAGE) 1000 MG TABLET PO SCH ×2 (08:35→17:28)
[2019-04-29] MEDS: ASPIRIN 325 MG TAB PO SCH (08:35)
[2019-04-29] MEDS: HEPARIN SOD (PORCINE) 5000 UNITS/ML VIAL SC SCH ×2 (08:35→20:19)
--- NOTE | 2019-04-29 11:02 | IPNPDOC ---
Subjective Date Seen The patient was seen on 04/29/19. Subjective Chief Complaint/HPI No complaints this am. planned for discharge next week working with with PT and OT Objective Physical Examination General Exam: Positive: Alert, Cooperative, No Acute Distress, Other (Multiple mayur on the right lower occipital region, sutures on dariana right parietal region) Eye Exam: Positive: PERRLA, Conjunctiva & lids normal, EOMI; Negative: Sclera icteric ENT Exam: Positive: Mucous membr. moist/pink, Pharynx Normal Neck Exam: Positive: Supple; Negative: JVD, thyromegaly Chest Exam: Positive: Clear to auscultation, Normal air movement Heart Exam: Positive: Rate Normal, Regular Rhythm, Normal S1, Normal S2; Negative: Murmurs, Rubs Abdomen Exam: Positive: Normal bowel sounds, Soft; Negative: Tenderness, Hepatospenomegaly Extremity Exam: Positive: Normal pulses; Negative: Clubbing, Cyanosis, Edema Skin Exam: Positive: Nl turgor and temperature; Negative: Breakdown, Lesion Neuro Exam: Positive: Normal Speech, Strength at 5/5 X4 ext, Normal Tone Assessment /Plan Assessment 48 year old male with no PMH till this episode of prolonged hospitalization at [facility] when he was found to have CAD s/p STEMI and s/p stent, diabetes, hypertension, ischemic cardiomyopathy, hyperlipidemia developed acute right cerebellar ischemic CVA in right PICA distribution post cardiac cath with subsequent increase in intracerebral pressure and mass effect requiring EVD placement and right suboccipital craniectomy was transferred here for acute rehab. Acute Cerebellar stroke s/p right suboccipital craniectomy mayur and sutures in placed to be removed on 05/05 continue ASA, statin PT OT as per ARU Extensive CAD s/p STEMI and stent placement with ischemic cardiomyopathy with EF of 30% continue ASA, statin, metoprolol No signs of fluid overload at present. monitor intake and output. Diabetes with neuropathy not controlled continue levemir, lispro ,metformin, gabapentin FS monitoring AC and HS. carb consistent diet Hypertension well controlled continue metoprolol Smoker counselled against smoking refused nicotine gum or patch GI prophylaxis in place. Plan/VTE VTE Prophylaxis Ordered?: Yes VS, I&O, 24H, Fishbone Vital Signs/I&O Vital Signs Date Time Temp Pulse Resp B/P (MAP) Pulse Ox O2 Delivery O2 Flow Rate FiO2 04/29/19 08:34 87 135/74 04/29/19 06:00 97.4 18 97 Room Air I&O- Last 24 Hours up to 6 AM 04/29/19 05:59 Intake Total 1535 ml Output Total 0 ml Balance 1535 ml Laboratory Data 24H LABS Laboratory Tests 2 04/28/19 11:42: Bedside Glucose (Misc Panel) 267H 04/28/19 16:56: Bedside Glucose (Misc Panel) 323H 04/28/19 19:55: Bedside Glucose (Misc Panel) 190H 04/29/19 06:30: Bedside Glucose (Misc Panel) 281H NOA KRUGER MD Apr 29, 2019 11:02
[2019-04-29 14:00] VITALS: BP 111/73
[2019-04-29 19:35] VITALS: BP 131/74
[2019-04-29] MEDS: LEVEMIR (INSULIN DETEMIR) 1 UNITS/0.01ML SC SCH (20:19)
[2019-04-29] MEDS: traZODone 25MG PER 1/2 TABLET PO SCH (20:20)
[2019-04-29] MEDS: ATORVASTATIN 20 MG TAB PO SCH (20:20)
[2019-04-29] MEDS: SENNA 8.6 MG TAB (SENOKOT) PO SCH (20:21)
[2019-04-30 06:30] VITALS: BP 117/69
[2019-04-30] MEDS: PANTOPRAZOLE 40MG TAB (PROTONIX) PO SCH (08:30)
[2019-04-30] MEDS: GABAPENTIN 100 MG CAP PO SCH ×3 (08:30→21:23)
[2019-04-30] MEDS: HumaLOG INSULIN (NovoLOG) PER UNIT SC SCH ×4 (08:30→21:00)
[2019-04-30] MEDS: METOPROLOL TART 12.5 MG PER 1/2 TAB PO SCH ×2 (08:30→21:21)
[2019-04-30] MEDS: metFORMIN (GLUCOPHAGE) 1000 MG TABLET PO SCH ×2 (08:30→17:12)
[2019-04-30] MEDS: ASPIRIN 325 MG TAB PO SCH (08:31)
[2019-04-30] MEDS: DOCUSATE SODIUM 100 MG CAP PO SCH ×2 (08:31→21:00)
[2019-04-30] MEDS: HEPARIN SOD (PORCINE) 5000 UNITS/ML VIAL SC SCH ×2 (08:31→21:23)
[2019-04-30 14:00] VITALS: BP 114/59
[2019-04-30 19:55] VITALS: BP 125/84
[2019-04-30] MEDS: SENNA 8.6 MG TAB (SENOKOT) PO SCH (21:00)
[2019-04-30] MEDS: traZODone 25MG PER 1/2 TABLET PO SCH (21:20)
[2019-04-30] MEDS: LEVEMIR (INSULIN DETEMIR) 1 UNITS/0.01ML SC SCH (21:22)
[2019-04-30] MEDS: ATORVASTATIN 20 MG TAB PO SCH (21:23)
[2019-04-30] MEDS: ACETAMINOPHEN TAB 650MG DOSE (2X325MG) PO PRN (21:24)
[2019-05-01 05:20] VITALS: BP 115/81
[2019-05-01] MEDS: GABAPENTIN 100 MG CAP PO SCH (08:46)
[2019-05-01] MEDS: PANTOPRAZOLE 40MG TAB (PROTONIX) PO SCH (08:46)
[2019-05-01] MEDS: metFORMIN (GLUCOPHAGE) 1000 MG TABLET PO SCH (08:46)
[2019-05-01 08:47] VITALS: BP 115/81
[2019-05-01] MEDS: ASPIRIN 325 MG TAB PO SCH (08:47)
[2019-05-01] MEDS: HumaLOG INSULIN (NovoLOG) PER UNIT SC SCH (08:47)
[2019-05-01] MEDS: METOPROLOL TART 12.5 MG PER 1/2 TAB PO SCH (08:47)
[2019-05-01] MEDS: HEPARIN SOD (PORCINE) 5000 UNITS/ML VIAL SC SCH (08:48)
[2019-05-01] MEDS: DOCUSATE SODIUM 100 MG CAP PO SCH (08:48)
[2019-05-01] MEDS ORDERED: METO1TAB87 PO (10:12)
[2019-05-01] MEDS ORDERED: GLUC1INJ21 SC (10:12)
[2019-05-01] MEDS ORDERED: ATOR1TAB21 PO (10:12)
[2019-05-01] MEDS ORDERED: GLUC4GMTAB PO (10:12)
[2019-05-01] MEDS ORDERED: TRAZ-252 PO (10:12)
[2019-05-01] MEDS ORDERED: ASPI-1 PO (10:12)
[2019-05-01] MEDS ORDERED: GABA-1171 PO (10:12)
[2019-05-01] MEDS ORDERED: INSUHUMDS SC (10:12)
[2019-05-01] MEDS ORDERED: INSUDET SC (10:12)
[2019-05-01] MEDS ORDERED: GLUC1000 PO (10:12)
== END 2019-05-01 11:45 | disposition home or self-care (01) | DRG 58 ==
LOC: M PM&R 15:33
PROVIDERS: ADMIT Physical Medicine & Rehabilitation; ATTEND Physical Medicine & Rehabilitation
DX: I69.398 Other sequelae of cerebral infarction (principal); I11.0 Hypertensive heart disease with heart failure; E11.40 Type 2 diabetes mellitus with diabetic neuropathy, unspecified; I50.42 Chronic combined systolic (congestive) and diastolic (congestive) heart failure; I25.2 Old myocardial infarction; Z95.2 Presence of prosthetic heart valve; E78.5 Hyperlipidemia, unspecified; R26.89 Other abnormalities of gait and mobility; Z79.82 Long term (current) use of aspirin; Z79.4 Long term (current) use of insulin; Z79.899 Other long term (current) drug therapy; I25.5 Ischemic cardiomyopathy; D72.829 Elevated white blood cell count, unspecified; F17.210 Nicotine dependence, cigarettes, uncomplicated

== ENCOUNTER 2024-07-14 13:56 | Emergency (ER) | payer MEDICARE, MEDICAID ==
[~2024-07-14] VITALS: Ht 175.3 cm; Wt 81.6 kg
[~2024-07-14 13:56] MED LIST: ASPI-1 PO; ASPI325T57 PO; ATOR1TAB21 PO; ATOR80TA59 PO; COMMENTS; GABA-1171 PO; GLUC1000 PO; GLUC1INJ21 SC; GLUC4GMTAB PO; INSUDET SC; INSUHUMDS SC; LANTINJ4 SC; METO1TAB87 PO; PANT40TA29 PO; QUET1TAB17 PO; TRAZ-252 PO
[2024-07-14] MEDS ORDERED: ENTR1TAB PO (14:17)
[2024-07-14] MEDS ORDERED: RANO500T2 (14:17)
[2024-07-14] MEDS ORDERED: METF500T13 (14:17)
[2024-07-14] MEDS ORDERED: DULA3PEN (14:17)
[2024-07-14] MEDS ORDERED: STEG15TA (14:17)
[2024-07-14] MEDS: CEPHALEXIN 500 MG CAP PO ONE (17:40)
[2024-07-14] MEDS ORDERED: CEPH500C PO (17:41)
[2024-07-14 17:50] VITALS: BP 137/71; TEMP 98.3; O2SAT 97
== END 2024-07-14 17:51 | disposition home or self-care (01) ==
LOC: M ED 13:56
DX: L03.031 Cellulitis of right toe (principal); E11.9 Type 2 diabetes mellitus without complications; F17.200 Nicotine dependence, unspecified, uncomplicated; Z86.79 Personal history of other diseases of the circulatory system; Z79.82 Long term (current) use of aspirin; Z79.02 Long term (current) use of antithrombotics/antiplatelets; Z79.4 Long term (current) use of insulin; Z79.899 Other long term (current) drug therapy